=== PATIENT | female | born 1940 | race Caucasian/White ===

== ENCOUNTER 2019-12-28 08:25 | Outpatient (CLI) | payer MEDICARE, MEDICAID ==
[~2019-12-28 08:25] MED LIST: ASPI-10 PO; ASPI-1107 PO; ESOM40CA PO; LANTUS SQ; LINA5TAB4 PO; LIRA0.6P2 SUBCUT; METO25TA6 PO; ROSU10TA2 PO; TICA90TA2 PO; TRIA1CAP2 PO
[2019-12-28 08:59] LABS: BASOPHILS # (AUTO) 0.1 X10'3 (0-0.2); BASOPHILS % (AUTO) 1.1 % (0-1); EOSINOPHILS # (AUTO) 0.2 X10'3 (0-0.9); EOSINOPHILS % (AUTO) 2.4 % (0-6); HEMATOCRIT 23.7 % (35.0-45.0); LYMPHOCYTES # (AUTO) 1.4 X10'3 (1.1-4.8); LYMPHOCYTES % (AUTO) 17.6 % (21-51); MEAN CORPUSCULAR HEMOGLOBIN 20.3 PG (27.0-31.0); MEAN CORPUSCULAR HGB CONC 29.6 g/dL (33.0-36.5); MEAN CORPUSCULAR VOLUME 68.7 FL (78-98); MEAN PLATELET VOLUME 9.2 FL (7.4-10.4); MONOCYTES # (AUTO) 0.7 X10'3 (0-0.9); MONOCYTES % (AUTO) 8.3 % (2-12); NEUTROPHILS # (AUTO) 5.6 X10'3 (1.8-7.7); NEUTROPHILS % (AUTO) 70.6 % (42-75); PLATELET COUNT 277 X10'3 (140-440); RED BLOOD COUNT 3.45 X10'6 (4.20-5.60); RED CELL DISTRIBUTION WIDTH 17.3 % (11.5-14.5)
[2019-12-28 09:06] LABS: ALBUMIN 3.1 G/DL (3.4-5.0); ANION GAP 5 (8-16); BLOOD UREA NITROGEN 24 MG/DL (7-18); BUN/CREATININE RATIO 17.9 (6.6-38.0); CALCIUM 8.5 MG/DL (8.5-10.1); CHLORIDE 104 MMOL/L (99-107); CREATININE 1.34 MG/DL (0.40-0.90); GLUCOSE 122 MG/DL (70-104); POTASSIUM 3.8 MMOL/L (3.5-5.1); SODIUM 138 MMOL/L (135-145); TOTAL CARBON DIOXIDE 29.1 MMOL/L (24-32); eGFR 38 ML/MIN
[2019-12-28 09:09] LABS: PARTIAL THROMBOPLASTIN TIME 25 SECONDS (22-32)
[2019-12-28 09:54] LABS: ANISOCYTOSIS 1+; MICROCYTOSIS 2+; PLATELET ESTIMATE NORMAL
[2019-12-28 09:55] LABS: ELLIPTOCYTES FEW; HYPOCHROMASIA 2+
== END 2019-12-28 23:59 | disposition home or self-care (01) ==
LOC: SSTAY O 08:25 → EDSTATUS 01-03 06:30
PROVIDERS: ATTEND Internal Medicine Interventional Cardiology
DX: R94.31 Abnormal electrocardiogram [ECG] [EKG] (principal); Z53.21 Procedure and treatment not carried out due to patient leaving prior to being seen by health care provider; I25.118 Atherosclerotic heart disease of native coronary artery with other forms of angina pectoris; I10 Essential (primary) hypertension; J44.9 Chronic obstructive pulmonary disease, unspecified; E11.9 Type 2 diabetes mellitus without complications
CPT/HCPCS: 80048; 85025; 85610; 85730

== ENCOUNTER 2020-02-28 05:39 | Day surgery (SDC) | payer MEDICARE, OTHER ==
[2020-02-23 10:18] LABS: BASOPHILS # (AUTO) 0.1 X10'3 (0-0.2); BASOPHILS % (AUTO) 0.9 % (0-1); EOSINOPHILS # (AUTO) 0.2 X10'3 (0-0.9); EOSINOPHILS % (AUTO) 1.8 % (0-6); HEMATOCRIT 36.7 % (35.0-45.0); HEMOGLOBIN 11.9 g/dl (12.0-16.0); LYMPHOCYTES # (AUTO) 1.4 X10'3 (1.1-4.8); LYMPHOCYTES % (AUTO) 15.8 % (21-51); MEAN CORPUSCULAR HEMOGLOBIN 25.5 PG (27.0-31.0); MEAN CORPUSCULAR HGB CONC 32.4 g/dL (33.0-36.5); MEAN CORPUSCULAR VOLUME 78.5 FL (78-98); MEAN PLATELET VOLUME 8.8 FL (7.4-10.4); MONOCYTES # (AUTO) 0.5 X10'3 (0-0.9); MONOCYTES % (AUTO) 6.4 % (2-12); NEUTROPHILS # (AUTO) 6.4 X10'3 (1.8-7.7); NEUTROPHILS % (AUTO) 75.1 % (42-75); PLATELET COUNT 195 X10'3 (140-440); RED BLOOD COUNT 4.67 X10'6 (4.20-5.60); RED CELL DISTRIBUTION WIDTH 22.4 % (11.5-14.5); WHITE BLOOD COUNT 8.5 X10'3 (4.5-11.0)
[2020-02-23 10:32] LABS: PARTIAL THROMBOPLASTIN TIME 27 SECONDS (22-32)
[2020-02-23 10:37] LABS: ANISOCYTOSIS 2+; ELLIPTOCYTES FEW; MICROCYTOSIS 1+; PLATELET ESTIMATE NORMAL
[2020-02-23 10:39] LABS: ALANINE AMINOTRANSFERASE 23 U/L (12-78); ALBUMIN 3.2 G/DL (3.4-5.0); ALBUMIN/GLOBULIN RATIO 0.6 (1.1-1.5); ALKALINE PHOSPHATASE 115 IU/L (46-116); ANION GAP 5 (8-16); ASPARTATE AMINO TRANSFERASE 17 U/L (10-37); BILIRUBIN,TOTAL 0.2 MG/DL (0.1-1.0); BLOOD UREA NITROGEN 20 MG/DL (7-18); BUN/CREATININE RATIO 18.7 (6.6-38.0); CALCIUM 9.1 MG/DL (8.5-10.1); CHLORIDE 102 MMOL/L (99-107); CREATININE 1.07 MG/DL (0.40-0.90); GLUCOSE 131 MG/DL (70-104); POTASSIUM 3.5 MMOL/L (3.5-5.1); SODIUM 138 MMOL/L (135-145); TOTAL CARBON DIOXIDE 31.5 MMOL/L (24-32); TOTAL PROTEIN 8.4 G/DL (6.4-8.2); eGFR 49 ML/MIN
[2020-02-28] VITALS (12 sets, daily range): BP systolic 104–139; BP diastolic 37–80
[~2020-02-28] VITALS: Ht 157.5 cm; Wt 72.4 kg
[2020-02-28] MEDS ORDERED: normal saline 1,000 ML IV SCH (05:55)
[2020-02-28] MEDS ORDERED: diphenhydrAMINE 25mg capsule PO PRN (05:55)
[2020-02-28] MEDS ORDERED: LORazepam 0.5 MG tablet PO PRN (05:55)
[2020-02-28] MEDS ORDERED: INSU100I31 (06:05)
[2020-02-28] MEDS ORDERED: ASPI-1053 PO (06:05)
[2020-02-28] MEDS ORDERED: ESOM40CA49 PO (06:05)
[2020-02-28] MEDS ORDERED: NITR0.4T51 SL (06:05)
[2020-02-28] MEDS ORDERED: HYDR-3964 PO (06:05)
[2020-02-28] MEDS ORDERED: midazolam 2 mg/2 ml injection ONE (06:57)
[2020-02-28] MEDS ORDERED: LIDOcaine 1% (10mg/ml)w/preservative injection 20ml MDV ONE (06:57)
[2020-02-28] MEDS ORDERED: verapamil 2.5 mg/ml inj IV ONE (06:57)
[2020-02-28] MEDS ORDERED: fentaNYL/PF 50MCG/1 ML 2ML syringe ONE (06:57)
[2020-02-28] MEDS ORDERED: heparin 1,000unit/ml 10ml vial 10 ML ONE (06:57)
[2020-02-28] MEDS ORDERED: nitroGLYCERIN-Tridil 50MG/D5W 250 ML IV ONE (06:58)
[2020-02-28] MEDS ORDERED: iohexol 350MG/ML 100ml bottle IV ONE (06:58)
[2020-02-28] MEDS ORDERED: diphenhydrAMINE 25mg capsule PO ONE (07:03)
[2020-02-28] MEDS ORDERED: LORazepam 0.5 MG tablet ONE (07:03)
[2020-02-28] MEDS ORDERED: proCHLORperazine 10 MG/2 ml inj IV PRN (08:10)
[2020-02-28] MEDS ORDERED: HYDROcodone/acetaminophen 5mg/325mg tablet PO PRN (08:10)
[2020-02-28] MEDS ORDERED: ondansetron/PF 4mg/2ml inj IV PRN (08:10)
[2020-02-28] MEDS ORDERED: nitroGLYCERIN 0.4mg SUBLingual tab SL PRN (08:10)
[2020-02-28] MEDS ORDERED: OXAZEpam 15mg capsule PO PRN (08:10)
[2020-02-28] MEDS ORDERED: HYDROcodone/acetaminophen 10/325mg tab PO PRN (08:10)
== END 2020-02-28 11:30 | disposition home or self-care (01) ==
LOC: SSTAY O 05:39
PROVIDERS: ATTEND Student in an Organized Health Care Education/Training Program
DX: R94.39 Abnormal result of other cardiovascular function study (principal); R07.89 Other chest pain; I25.10 Atherosclerotic heart disease of native coronary artery without angina pectoris; I10 Essential (primary) hypertension; E11.9 Type 2 diabetes mellitus without complications; E78.5 Hyperlipidemia, unspecified; Z79.82 Long term (current) use of aspirin; Z79.899 Other long term (current) drug therapy; Z95.5 Presence of coronary angioplasty implant and graft
CPT/HCPCS: 36415; 80053; 85025; 85610; 85730; 93005; 93458; 99152; C1769; C1894; J1644; J2001; J2250; J3010; J7030; Q0163; Q9967; 85008; A4620; A5120; J3490

== ENCOUNTER 2025-05-18 01:57 | Inpatient (IN) | payer MEDICARE, MEDICAID ==
[~2025-05-18] VITALS: Ht 162.6 cm; Wt 54.4 kg
[~2025-05-18 01:57] MED LIST changes: -ASPI-10 PO; +ASPI-1053 PO; -ASPI-1107 PO; -ESOM40CA PO; +ESOM40CA49 PO; +HYDR-3964 PO; +INSU100I31; -LANTUS SQ; -LINA5TAB4 PO; -LIRA0.6P2 SUBCUT; +LOP25T PO; -METO25TA6 PO; +NITR0.4T51 SL; -ROSU10TA2 PO; -TICA90TA2 PO
--- NOTE | 2025-05-18 02:53 | Physician Documentation ---
History of Present Illness ~ Chief Complaint: Hypoglycemia Stated Complaint: HYPOGLYCEMIA Time Seen by MD: 02:52 Mode of Arrival: EMS HPI Patient presents to the emergency room for evaluation of hypoglycemia. Patient does have pancreatic cancer with stent placement. Patient has not felt well the past day with decreased p.o. intake. She would not take her insulin today becau se when she checked her sugar it was not high enough to take her insulin. Daughter notes that earlier today patient was sitting by [employer] stove with the heat blanket on and shivering. Denies any dysuria or new abdominal pain. No cough cold congestion. Medication Reconciliation Allergies: Coded Allergies: No Known Allergies (Unverified , 03/17/14) Scheduled Amiodarone HCl (Amiodarone HCl), 1 TAB PO DAILY, (Reported) Aspirin (Alejandra Chewable), 81 MG PO DAILY, (Reported) Hydrochlorothiazide (Hydrochlorothiazide), 1 TAB PO DAILY, (Reported) Insulin Glargine,Hum.rec.anlog* (Lantus*), 15 UNITS SQ HS, (Reported) Metoprolol Succinate (Metoprolol Succinate), 1 TAB PO DAILY, (Reported) Nitroglycerin SL* (Nitrostat SL*), 1 TAB SL UD, (Reported) Pantoprazole Sodium (Pantoprazole Sodium), 1 TAB PO DAILY, (Reported) Ursodiol (Ursodiol), 1 CAP PO DAILY, (Reported) Scheduled PRN Hydrocodone Bit/Acetaminophen (Hydrocodon-Acetaminophen 5-325), 1 TAB PO Q6H PRN for pain, (Reported) Discontinued Medications Esomeprazole Magnesium (Nexium), 1 CAP PO DAILY, (Reported) Discontinued Reason: patient no longer taking Insulin Glargine,Hum.rec.anlog (Basaglar Kwikpen U-100), (Reported) Discontinued Reason: patient no longer taking Metoprolol Tartrate* (Lopressor tablet*), 25 MG PO BID, (Reported) Discontinued Reason: patient no longer taking Triamterene/Hydrochlorothiazid (Dyazide 37.5-25 Capsule), 1 CAP PO DAILY, (Reported) Discontinued Reason: patient no longer taking Review of Systems ROS All review of systems negative except as per HPI Physical Exam Vital Signs: Temperature: 98.1, Source: Oral, Heart Rate: 92, Respiratory Rate: 16, BP: 101/41, Pulse Oximetry: 98, Weight: 54.400 Physical Exam General: Patient is awake, alert, oriented x4 in no acute distress Head: Normocephalic and atraumatic. Eyes: Conjunctival normal. EOMI. PERRL. ENT: Mucous membranes dry. Neck: Supple, trachea is midline. Chest: Clear to auscultation bilaterally without rales, rhonchi, or wheezes. There is no accessory muscle use or retractions. Cardiac: RRR without murmurs, gallops, or rubs. Abd: Soft, nondistended, mild diffuse tenderness to palpation without peritonitis Progress Progress Note The patient presented with hypoglycemia, the patient had a WBC elevation and a procalcitonin of 11 which seemed excessive given the patient's unimpressive UTI. The patient has had a diagnosis of pancreatic head cancer and has has a stent placed in her bile duct interrogation of her bile ducts demonstrated cholecystitis with two masses or stones within the proximal bile ducts. The patient is in need of an ERCP, the patient was given IV antibiotics with improvement of her clinical condition the case has been discussed with the surgeon, the patient has been accepted at [facility] the patient will be transferred to [facility] on Thursday night, the patient will be admitted to the hospitalist service the case has been discussed with the hospitalist. Extensive conversation has a occurred with the family and the hui ent has had an extended stay in the emergency department awaiting attempts to transfer heard a for ERCP Results/Orders Results/Orders Orders - CARLOS LEE MD Culture Blood (05/18/25 03:06) Chest,Single View (05/18/25 03:30) Completed Orders - CARLOS LEE MD Electrocardiogram (05/18/25 03:06) Cbc/Diff (05/18/25 03:06) MG (05/18/25 03:06) Chest,Single View (05/18/25 03:30) Procalcitonin (05/18/25 03:06) Influenza Type A&B Rapid Test (05/18/25 03:06) Hs Troponin I W Calculations (05/18/25 03:06) Lacticsepsis (05/18/25 03:06) CMP (05/18/25 03:06) Normal Saline 1000ml (0.9% Sodium Chlori (05/18/25 03:10) Ceftriaxone/M8w-Vjyshkas 1gm (Rocephin 1 (05/18/25 06:25) Ua W/Microscopic, Cult If Ind (05/18/25 06:50) Cult Urine + [place] [address] (05/18/25 07:38) Dextrose 50%-Water (Dextrose 50%-Water S (05/18/25 18:45) Hydrocodone/Apap 5/325mg Tab ([place] 5/32 (05/18/25 21:05) Vital Signs 05/18/25 05/18/25 05/18/25 05/18/25 07:45 08:00 09:00 09:00 Pulse 75 73 75 75 Resp 14 15 16 16 B/P (MAP) 143/81 (101) 103/42 (62) 106/46 (66) Pulse Ox 99 100 100 100 O2 Flow Rate 0 0 0 05/18/25 05/18/25 05/18/25 05/18/25 09:30 09:35 09:53 10:35 Pulse 78 77 79 Resp 13 18 14 B/P (MAP) 119/56 (77) 117/58 (77) Pulse Ox 99 100 99 O2 Flow Rate 0 05/18/25 05/18/25 05/18/25 05/18/25 13:02 13:03 14:00 14:49 Pulse 77 72 86 Resp 16 16 16 18 B/P (MAP) 123/53 (76) 107/45 (65) 107/45 (65) Pulse Ox 97 97 97 O2 Flow Rate 0 0 0 05/18/25 05/18/25 05/18/25 05/18/25 15:21 15:30 16:30 17:25 Pulse 86 82 91 Resp 16 16 18 14 B/P (MAP) 122/52 (75) 107/44 (65) 107/42 (63) Pulse Ox 96 94 96 O2 Flow Rate 0 0 0 05/18/25 05/18/25 05/18/25 05/19/25 19:31 19:31 22:50 00:01 Temp 98.1 98.1 Pulse 84 84 80 Resp 18 18 15 B/P (MAP) 89/39 (56) 120/46 (70) 125/48 (73) Pulse Ox 90 98 96 O2 Flow Rate 0 0 05/19/25 05/19/25 05/19/25/19/25 02:45 03:30 04:30 05:30 Temp 98.1 Pulse 78 89 81 77 Resp 14 14 13 14 B/P (MAP) 114/54 (74) 110/83 (92) 122/50 (74) 132/49 (76) Pulse Ox 90 98 97 99 O2 Flow Rate 0 05/19/25 05/19/25 05/19/25 05/19/25 06:45 07:50 08:36 09:00 Pulse 85 89 86 Resp 16 16 16 16 B/P (MAP) 128/45 (72) 144/59 (87) 138/54 (82) Pulse Ox 94 94 94 O2 Flow Rate 0 0 0 05/19/25 05/19/25 05/19/25 05/19/25 09:20 10:00 10:58 12:16 Pulse 76 81 74 Resp 16 16 16 17 B/P (MAP) 123/51 (75) 142/60 (87) 141/61 (87) Pulse Ox 95 96 96 O2 Flow Rate 0 0 0 05/19/25 05/19/25 13:17 14:17 Pulse 78 90 Resp 16 16 B/P (MAP) 145/62 (89) 149/61 (90) Pulse Ox 94 95 O2 Flow Rate 0 0 Laboratory Tests Test 05/18/25 02:10 05/18/25 03:07 05/18/25 03:16 05/18/25 05:20 Glucometer 127 H 144 H Influenza Type A Antigen Negative Influenza Type B Antigen Negative White Blood Count 16.4 H Red Blood Count 3.40 L Hemoglobin 9.6 L Hematocrit 28.9 L Mean Corpuscular Volume 85.0 Mean Corpuscular Hemoglobin 28.2 Mean Corpuscular Hemoglobin Concent 33.2 Red Cell Distribution Width 14.8 H Platelet Count 163 Mean Platelet Volume 9.9 Neutrophils (%) (Auto) 91.8 H Lymphocytes (%) (Auto) 2.4 L Monocytes (%) (Auto) 5.4 Eosinophils (%) (Auto) 0 Basophils (%) (Auto) 0.4 Neutrophils # (Auto) 15.0 H Lymphocytes # (Auto) 0.4 L Monocytes # (Auto) 0.9 Eosinophils # (Auto) 0.0 Basophils # (Auto) 0.1 CBC Comment Sodium Level 138 Potassium Level 2.1 *L Chloride Level 102 Carbon Dioxide Level 29.8 Anion Gap 6 L Blood Urea Nitrogen 12 Creatinine 1.01 H Estimated GFR/1.73 m2 52 BUN/Creatinine Ratio 11.9 Glucose Level 123 H Lactic Acid Level 1.4 Calcium Level 6.9 L Magnesium Level 1.5 Total Bilirubin 1.7 H Aspartate Amino Transf (AST/SGOT) 79 H Alanine Aminotransferase (ALT/SGPT) 34 Alkaline Phosphatase 394 H Troponin I High Sensitivity 26 Total Protein 5.9 L Albumin 1.4 L Globulin 4.5 H Albumin/Globulin Ratio 0.3 L Procalcitonin 11.31 H Chemistry Comments Test 05/18/25 06:50 05/18/25 07:48 05/18/25 07:49 05/18/25 15:50 Urine Specimen Description Urinal Urine Color Dark yellow Urine Clarity Clear Urine pH 6.0 Urine Specific [place] 1.025 Urine Protein Trace Urine Glucose (UA) 100 H Urine Ketones Negative Urine Occult Blood Negative Urine Nitrite Negative Urine Bilirubin Moderate Urine Urobilinogen 4.0 H Urine Leukocyte Esterase Negative Urine RBC 0-2 Urine WBC 5-10 H Urine Squamous Epithelial Cells Moderate Urine Uric Acid Crystals 1+ Urine Bacteria 1+ Urine Mucus None seen Urine Culture Indicated Indicated Volume Urine Centrifuged 10 ml Urine Comment Magnesium Level 1.6 Glucometer 134 H Potassium Level 3.9 Test 05/18/25 17:42 05/18/25 18:36 05/18/25 19:19 05/19/25 08:11 Glucometer 65 L 64 L 142 H White Blood Count 10.5 Red Blood Count 3.82 L Hemoglobin 10.6 L Hematocrit 32.4 L Mean Corpuscular Volume 84.8 Mean Corpuscular Hemoglobin 27.8 Mean Corpuscular Hemoglobin Concent 32.8 L Red Cell Distribution Width 15.2 H Platelet Count 180 Mean Platelet Volume 9.8 Neutrophils (%) (Auto) 83.6 H Lymphocytes (%) (Auto) 7.6 L Monocytes (%) (Auto) 5.6 Eosinophils (%) (Auto) 2.7 Basophils (%) (Auto) 0.5 Neutrophils # (Auto) 8.7 H Lymphocytes # (Auto) 0.8 L Monocytes # (Auto) 0.6 Eosinophils # (Auto) 0.3 Basophils # (Auto) 0.0 CBC Comment Sodium Level 140 Potassium Level 3.1 L Chloride Level 106 Carbon Dioxide Level 29.5 Anion Gap 5 L Blood Urea Nitrogen 11 Creatinine 0.98 H Estimated GFR/1.73 m2 54 BUN/Creatinine Ratio 11.2 Glucose Level 52 L Calcium Level 7.7 L Total Bilirubin 2.0 H Aspartate Amino Transf (AST/SGOT) 80 H Alanine Aminotransferase (ALT/SGPT) 41 Alkaline Phosphatase 385 H Total Protein 5.9 L Albumin 1.3 L Globulin 4.6 H Albumin/Globulin Ratio 0.3 L Chemistry Comments Test 05/19/25 08:18 05/19/25 09:09 05/19/25 10:51 05/19/25 11:37 Glucometer 41 *L 40 *L 116 H Potassium Level 3.9 Test 05/19/25 13:42 Glucometer 111 H Microbiology Date/Time Source Procedure Growth Status 05/18/25 07:48 Blood Hand Right Blood Culture - Preliminary NO GROWTH AFTER 4 DAYS Resulted 05/18/25 07:38 Urine Urinal (Er Only) Urine Culture - Final MIXED RANGEL ISOLATED.... Complete EKG/XRAY/CT/US/VASC/MRI Ultrasound : Impression Patient: KALI ROGERS Medical Record: [id number] [facility] : 1940, Age: 84 Sex: Female Location: ER Patient Status: REG ER Service Date/Time: 05/18/25843 Ordering Physician: GRANT ANDERSON MD Exam: ULTRASOUND OF ABDOMEN EXAM: US ULTRASOUND OF ABDOMEN HISTORY: abnormal ct COMPARISON: CT CT ABDOMEN PELVIS on DOS: 05/18/25 TECHNIQUE: Real-time grayscale and color flow images of the abdomen were obtained. FINDINGS: LIVER: Liver measures 13.9 cm craniocaudal. Liver parenchyma is homogeneous in echotexture. No focal lesion is identified. No intrahepatic ductal dilatation. Normal directional flow is seen in the portal vein. GALLBLADDER: There is biliary sludge. The gallbladder wall is thickened at 5 mm. There is no sonographic saunders sign. No pericholecystic fluid. Probable small gallbladder polyp. COMMON BILE DUCT: 6 mm in caliber. KIDNEYS: The right kidney measures 10.6 cm in length. No hydronephrosis. No suspicious renal lesions. No sonographic evidence of calculi. IMPRESSION: 1. Biliary sludge with sonographic findings raising the possibility of acute cholecystitis in the appropriate clinical setting. 2. The patient's known common bile duct abnormality is better assessed on recent CT. Electronically Signed by:MURRAY TATE MD Date & Time: 05/18/25937 Dictated by: MURRAY TATE MD Dictation date and time: 05/18/25937 Primary Care Provider: NO PRIMARY CARE PROVIDER cc: GRANT ANDERSON MD ~ Medical Decision Making Additional information obtaine: old records Findings see progress Differential Dx:Considerations: Include: Encephalopathy, Sepsis Departure Impression: Primary Impression: Hypoglycemia Additional Impressions: Hypokalemia Urinary tract infection Qualified Codes: N30.00 - Acute cystitis without hematuria Referrals: NO PRIMARY CARE PROVIDER (PCP) Signature Scribe Signature: no Attestation: The note accurately reflects work and decisions made by me.Carlos Lee MD 05/22/25 23:40 The note accurately reflects work and decisions made by me.Grant Anderson MD 05/20/25 19:27 CARLOS LEE MD May 18, 2025 02:53 GRANT ANDERSON MD May 18, 2025 08:37
--- NOTE | 2025-05-18 03:13 | ELECTROCARDIOGRAPH REPORT ---
[facility] Test Date: 2025-05-18 Test Time: 03:09:38 Pat Name: KALI ROGERS Department: [facility] Patient ID: [facility]-[id number] Room: ORTHO 4012 Gender: F Utility Hand: : 1940 Requested By: AFSHAN GUEVARA Order Number: [id number] Reading MD: Dr. Berry Alas Measurements Intervals Kamas Rate: 90 P: 0 OR: 56 QRS: 48 QRSD: 85 T: 60 QT: 404 QTc: 495 Interpretive Statements Sinus rhythm Short OR interval Borderline repolarization abnormality Borderline prolonged QT interval Electronically Signed On 05-25-2025 0:23:[address] Berry Alas Please click the below link to view image of tracing.
[2025-05-18] MEDS: normal saline 1000ml 1,000 ML IV ONE (03:17)
[2025-05-18] MEDS ORDERED: AMIO200T73 PO (03:25)
[2025-05-18] MEDS ORDERED: PANT40TA54 PO (03:25)
[2025-05-18] MEDS ORDERED: URSO300C2 PO (03:25)
[2025-05-18] MEDS ORDERED: HYDR12.55 PO (03:25)
[2025-05-18] MEDS ORDERED: LANTUS SQ (03:25)
[2025-05-18] MEDS ORDERED: METO-395 PO (03:25)
[2025-05-18 03:47] LABS: INFLUENZA TYPE A ANTIGEN RAPID NEGATIVE (Negative); INFLUENZA TYPE B ANTIGEN RAPID NEGATIVE (Negative)
--- NOTE | 2025-05-18 04:02 | RADIOLOGY REPORT ---
CHEST RADIOGRAPH INDICATION: SEPSIS TECHNIQUE: Single frontal view of the chest was obtained COMPARISON: None FINDINGS: Lines and Tubes: None Lungs: Stable chronic appearing bilateral interstitial pulmonary markings. No evidence of focal consolidation. Pleura: No effusion. No pneumothorax. Cardiomediastinal contours: Unremarkable Bones: Unremarkable IMPRESSION: 1. No evidence of acute disease.
[2025-05-18 05:35] LABS: MEAN PLATELET VOLUME 9.9 FL (7.4-10.4); RED CELL DISTRIBUTION WIDTH 14.8 % (11.5-14.5)
[2025-05-18] MEDS: CefTRIAXone/D5W-Rocephin 1gm 50 ML IV ONE (06:42)
[2025-05-18 06:55] LABS: CREATININE 1.01 MG/DL (0.40-0.90); TOTAL CARBON DIOXIDE 29.8 MMOL/L (24-32); eCRCL 34 ML/MIN; eGFR 52 ML/MIN
[2025-05-18] MEDS ORDERED: potassium Cl 20 mEq SR tablet PO PRN (07:15)
[2025-05-18] MEDS ORDERED: magnesium sulf-water 4G/100mL 100 ML IV PRN (07:15)
[2025-05-18] MEDS ORDERED: magnesium Cl slow-release 64mg tablet PO PRN (07:15)
[2025-05-18] MEDS ORDERED: magnesium sulf-water 2g/50mL 50 ML IV PRN (07:15)
[2025-05-18 07:31] LABS: LEUKOCYTE ESTERASE ,URINE NEGATIVE (Neg); NITRITES, URINE NEGATIVE (Neg); OCCULT BLOOD,URINE NEGATIVE (Neg)
[2025-05-18 07:33] LABS: UA COLLECTION TYPE URINAL
[2025-05-18 07:38] LABS: MUCUS STRANDS NONE SEEN /LPF (Neg); SQUAMOUS EPITHELIAL CELL,UR MODERATE /LPF (FEW); URIC ACID CRYSTALS 1+ /HPF (NEGATIVE)
[2025-05-18] MEDS: potassium Cl 20 mEq SR tablet PO PRN (07:57)
[2025-05-18] MEDS: normal saline 1000ML IV soln IVB ONE (07:58)
[2025-05-18] MEDS: potassium Cl 40MEQ/1/2NS 520ml 520 ML IV PRN (08:01)
[2025-05-18] MEDS: K and/or MAG REPLACEMENT MC SCH (08:02)
[2025-05-18] MEDS ORDERED: POTASSIUM CHLORIDE 20 MEQ/15 ML oral solution PO PRN (08:54)
--- NOTE | 2025-05-18 09:06 | RADIOLOGY REPORT ---
CLINICAL INFORMATION: Fever, leukocytosis. History of bile duct stent. TECHNIQUE: Axial CT images of the abdomen and pelvis were obtained without IV contrast. Coronal and sagittal reformatted images were obtained, reviewed, and stored. Evaluation of the parenchymal organs is limited without IV contrast. Evaluation of the bowel and mesentery is limited without oral contrast. All CT scans at this medical facility are performed using dose modulation techniques as appropriate to a performed exam including the following: Automated exposure control was utilized; adjustment of the MA and/or KV according to patient size; and use of iterative reconstruction technique. CTDIvol = 9.86 mGy DLP = 456.21 mGy-cm COMPARISON: None FINDINGS: Lung bases: Fibrotic changes in the lung bases. Liver: Grossly unremarkable. Biliary: Common bile duct stent in place. There appear to be calcific densities in the central intrahepatic ducts proximal to the level of the common bile duct stent with intrahepatic biliary ductal dilatation. Gallbladder is mildly distended. There is apparent gallbladder wall thickening. Possible minimal layering density in the gallbladder. Spleen: Unremarkable. Pancreas: Moderate to marked atrophy. Adrenal glands: Unremarkable. No mass. Kidneys: No hydronephrosis. No renal or ureteral calculi. Aorta/Vascular: Dense arterial calcification. No abdominal aortic aneurysm. Incidental note is made of an apparent common origin of the celiac trunk and SMA, consistent with a celiacamesenteric trunk. Lymph nodes: No mass or lymphadenopathy. Bowel/mesentery: Nonspecific nondilated fluid-filled small bowel loops. No small bowel obstruction. Appendix is not visualized. No free air. There is mild mesenteric edema without significant free fluid visualized. Pelvic organs: Grossly unremarkable. Bladder: Unremarkable. No mass. Abdominal wall: No mass or hernia. Bones: No acute fracture or suspicious intraosseous lesion. IMPRESSION: 1. Common bile duct stent in place. There are calcific densities in the central intrahepatic ducts, possibly gallstones, proximal to the common bile duct stent with associated intrahepatic biliary ductal dilatation. Correlate with clinical findings. MRCP may be helpful to further characterize if clinically indicated. 2. Gallbladder wall appears thickened. Mildly distended gallbladder. Possible minimal layering density in the gallbladder. If clinically indicated, ultrasound may be helpful to further characterize. 3. Nonspecific nondilated fluid-filled small bowel loops. Findings may be seen with ileus or enteritis in the appropriate clinical setting. No small bowel obstruction. 4. Additional findings as described above.
--- NOTE | 2025-05-18 09:40 | RADIOLOGY REPORT ---
EXAM: US ULTRASOUND OF ABDOMEN HISTORY: abnormal ct COMPARISON: CT CT ABDOMEN PELVIS on DOS: 05/18/25 TECHNIQUE: Real-time grayscale and color flow images of the abdomen were obtained. FINDINGS: LIVER: Liver measures 13.9 cm craniocaudal. Liver parenchyma is homogeneous in echotexture. No focal lesion is identified. No intrahepatic ductal dilatation. Normal directional flow is seen in the portal vein. GALLBLADDER: There is biliary sludge. The gallbladder wall is thickened at 5 mm. There is no sonographic saunders sign. No pericholecystic fluid. Probable small gallbladder polyp. COMMON BILE DUCT: 6 mm in caliber. KIDNEYS: The right kidney measures 10.6 cm in length. No hydronephrosis. No suspicious renal lesions. No sonographic evidence of calculi. IMPRESSION: 1. Biliary sludge with sonographic findings raising the possibility of acute cholecystitis in the appropriate clinical setting. 2. The patient's known common bile duct abnormality is better assessed on recent CT.
[2025-05-18] MEDS: piperacillin/tazo 3.375gm/50ml 50 ML IV ONE (10:05)
--- NOTE | 2025-05-18 13:48 | RADIOLOGY REPORT ---
CLINICAL HISTORY: Abnormal CT. TECHNIQUE: MRI and MRCP of the abdomen were performed without gadolinium. 3D reconstructed images were created under concurrent radiologist supervision and archived on the PACS system. COMPARISON: US ULTRASOUND OF ABDOMEN on DOS: 05/18/25, CT CT ABDOMEN PELVIS on DOS: 05/18/25. FINDINGS: Mildly distended gallbladder filled with a large amount of sludge. No evidence of gallbladder cholelithiasis. Abnormal gallbladder wall thickening/mild pericholecystic fat stranding, which is concerning for acute cholecystitis. Common bile duct (CBD) stent in place. Extrahepatic biliary ductal/CBD dilation measuring up to 20 mm. Multiple ovoid densities within the extrahepatic bile ducts/CBD proximal to the CBD stent measuring up to 15 mm, which is favored to represent choledocholithiasis. No intrabiliary ductal dilation. Unremarkable liver, spleen, and adrenal glands. Diffusely atrophic pancreas without evidence of pancreatitis or mass. No main pancreatic duct dilation. Mild bilateral perinephric fat stranding, which is nonspecific. No hydronephrosis or evidence of a suspicious renal mass. Partially imaged portions of the small large bowel appear unremarkable. IMPRESSION: 1. Mildly distended gallbladder filled with a large amount of sludge. No evidence of gallbladder cholelithiasis. Abnormal gallbladder wall thickening/mild pericholecystic fat stranding, which is concerning for acute cholecystitis. 2. CBD stent in place. Extrahepatic biliary ductal/CBD dilation measuring up to 20 mm. Multiple ovoid densities within the extrahepatic bile ducts/CBD proximal to the CBD stent measuring up to 15 mm, which is favored to represent choledocholithiasis. Consider follow-up ERCP for further evaluation.
[2025-05-18] MEDS: HYDROcodone/acetaminophen 5mg/325mg tablet PO ONE ×2 (15:21→21:14)
[2025-05-18] MEDS: piperacillin/tazo 3.375gm/50ml 50 ML IV SCH (17:24)
[2025-05-18] MEDS: dextrose 50%-water 50ml dispensing syringe IV ONE (18:52)
[2025-05-19] MEDS: pantoprazole 40mg Tablet.DR PO SCH (08:20)
[2025-05-19 08:27] LABS: MEAN PLATELET VOLUME 9.8 FL (7.4-10.4); RED CELL DISTRIBUTION WIDTH 15.2 % (11.5-14.5)
[2025-05-19 08:41] LABS: CREATININE 0.98 MG/DL (0.40-0.90); TOTAL CARBON DIOXIDE 29.5 MMOL/L (24-32); eCRCL 35 ML/MIN; eGFR 54 ML/MIN
[2025-05-19] MEDS: POTASSIUM CHLORIDE 20 MEQ/15 ML oral solution PO PRN (08:47)
[2025-05-19] MEDS: HYDROcodone/acetaminophen 5mg/325mg tablet PO PRN ×2 (09:20→17:38)
[2025-05-19] MEDS: normal saline 1000ML IV soln IVB ONE (15:41)
--- NOTE | 2025-05-19 16:04 | HISTORY AND PHYSICAL ---
History & Physical Providers to CC Chief complaint, Weakness, hypoglycemia ~ History of Present Illness Reason for Admit\Complaint: As above History of Present Illness This is a 84 years old white female, with history of multiple medical problems including diabetes mellitus type 2 poor control, tachyarrhythmia on amiodarone, coronary artery disease nonobstructive, anemia hemoglobin 9.6, chronic kidney disease, CHF, hypertension, COPD, history of pancreatic cancer treated with biliary stent, hypoalbuminemia, malnutrition, BMI 20, chronic pain syndrome on home opioids, presented today to emergency department chief complaint generalized weakness associated with hypoglycemia; in addition Patient presents to the emergency room for evaluation of hypoglycemia. Patient does have pancreatic cancer with stent placement. Patient has not felt well the past day with decreased p.o. intake. She would not take her insulin today because when she checked her sugar it was not high enough to take her insulin. Daughter notes that earlier today patient was sitting by [employer] stove with the heat blanket on and shivering. Denies any dysuria or new abdominal pain. No cough cold congestion. In emergency department patient was extensively evaluated and treated including IV antibiotics, consulted by general surgeon, diagnosed with pancreatic cancer hypoglycemia, acute cholecystitis, UTI, bacteremia, and decision was made to admit patient for further evaluation and treatment, patient is going to be transferred to higher level of care per surgeon recommendation. Allergies: Coded Allergies: No Known Allergies (Unverified , 03/17/14) Active prescriptions I reviewed reconciled Home Medications Home Medications Active Reported Amiodarone HCl 200 Mg Tablet 1 Tab PO DAILY Pantoprazole Sodium 40 Mg Tablet. 1 Tab PO DAILY Lantus* (Insulin Glargine) 100 Unit/1 Ml Vial 15 Units SQ HS Ursodiol 300 Mg Capsule 1 Cap PO DAILY 30 Days Metoprolol Succinate 25 Mg Tab.sr.24h 1 Tab PO DAILY Hydrochlorothiazide 12.5 Mg Tablet 1 Tab PO DAILY Nitrostat SL* (Nitroglycerin) 0.4 Mg Tablet 1 Tab SL UD 1st sign of attack; may repeat every 5 mins; if pain persists after 3 in 15 min, medical attention is recommended Hydrocodon-Acetaminophen 5-325 (Hydrocodone Bit/Acetaminophen) 1 Each Tablet 1 Tab PO Q6H PRN Alejandra Chewable (Aspirin) 81 Mg Tab.chew 81 Mg PO DAILY Past Medical History Past Medical History As in HPI Past Surgical History Surgical History Comment As in HPI Past Social History Social History Comment Deny illicit drug abuse tobacco alcohol use, live with the family good social support Health Maintenance Health Maintenance Noncontributory ROS ROS I review of systems Constitutional : no fever , no chills, positive for generalized weakness. No diaphoresis. Allergic/Immunologic, no lymphadenopathy, no hives, no skin eruptions. Eyes, no recent visual changes, no eye pain, no photophobia. Ears, nose, mouth, throat, no sore throat, no nosebleed, no ear pain. Cardiovascular, no palpitations, skipped beats, chest pain, no peripheral edema, Respiratory, no dyspnea, orthopnea, cough, hemoptysis, chest wall pain. Gastrointestinal, no abdominal pain, nausea, vomiting, constipation or diarrhea. : no dysuria, hematuria, pelvic pain, urethral d/c. Endocrine, no polyuria, polydipsia, recent unintentional weight gain or loss. Hematologic/Lymphatic, no petechiae, no enlarged lymph nodes, no bone pain. Integumentary, no rash, no skin lesions, Musculoskeletal, no muscle aches, or pain, no muscle cramps, no recent change in gait Neurological, no dizziness, no headache, no syncope, no paresthesia. Psychiatric, no delusions, visual hallucinations, or hearing hallucinations. ROS - in rest is as in HPI. Exam Vitals: Vital Signs Date Time Temp Pulse Resp B/P (MAP) Pulse Ox O2 Delivery O2 Flow Rate FiO2 05/19/25 14:17 90 16 149/61 (90) 95 0 05/19/25 02:45 98.1 Vital signs, stable ,afebrile. Pulse Oximetry reflects adequate oxygenation. BMI is 40, weight 54 kg General: well developed, poorly nourished. Awake , alert, and oriented x4, resting comfortably in the bed, in no acute distress . Skin: Warm, dry, no pallor, no rash or petechiae. HEENT: Atraumatic, normocephalic, EOMI, anicteric sclera B; pink conjunctiva; PERRLA, normal oropharynx, moist oral and nasal mucosa. Tympanic membrane , nose , throat clear. Neck: Trachea midline. Supple, full range of motion, no JVD, bruit , hepatojugular reflex , lymphadenopathy or masses, or other lesions Cardiac: Regular rhythm, regular rate no murmurs, rubs, or gallops. Normal S1 and S2, no S3 noticed. PMI is normal. Respiratory: Equal breath sounds bilaterally, no tachypnea; lungs clear to auscultation bilaterally, no wheezing ,rub or rales, or crackles. Chest wall is symmetric and without deformity. No signs of trauma. Chest wall is nontender. No signs of respiratory distress. Resonance is normal upon percussion bilaterally. Gastrointestinal: Abdomen symmetric, non-distended, soft, non-tender, normal bowel sounds x4 quadrant, normoactive, no hepatosplenomegaly , no masses , no bruit, no flank pain bilaterally. No voluntary guarding, rebound, or rigidity. No tenderness to percussion. No pulsatile masses. Equal femoral pulses. No Ingram's sign or McBurney point tenderness. Back; no CVA tenderness bilaterally, no deformities. Neck and back are without deformity as well. No tenderness noted on palpation of the spinous processes. Spinous processes are midline. Cervical, thoracic, and lumbar paraspinal muscles are not tender and are without spasm. : normal external genitalia, without lesions, swelling, masses or tenderness. Musculoskeletal: Extremities, normal range of motion, non-tender, muscle strength 5/5 x 4. Negative Homans signs bilaterally on lower extremity. Distal pulses full symmetrical, no clubbing, cyanosis , edema. Neurological: Speech is clear, alert, and oriented x 4. No motor or sensory deficit, deep tendon reflexes normal, cerebellar intact. Cranial nerves II-XII intact. Psych: Alert and or appropriate, normal affect. Vascular: Good distal pulses, which are equal x4; capillary refill less than 2 seconds. Lymphatic, no lymphadenopathy. Diagnostic Data Last Recorded Lab Results: 05/19/25 0811 05/19/25 1137 Advance Care Planning Advanced Care plannin - 30 Minutes Additional Plan Assessment Generalized weakness Diabetes mellitus type 2 uncontrolled Hypoglycemia Bacteremia Sepsis Hypovolemia UTI complicated Acute kidney injury secondary to vasomotor nephropathy Hypoalbuminemia Hypokalemia Malnutrition severe Chronic pain syndrome on home opioids Pancreatic cancer status post biliary stent placement Acute cholecystitis Acute cholangitis Anemia hemoglobin 9.6 Additional comorbidities, coronary artery disease, COPD, hypertension, CHF, chronic kidney disease 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, Plan IV antibiotics, fluids keep patient well hydrated euvolemic Correct electrolytes PT evaluation and treatment Nutrition consult Additional lab work pending General surgeon is on the case, recommended to transfer patient higher level of care Additional lab work pending I reconciled home medications DVT gastropathy prophylaxis addressed Sepsis Screening Reassessment Date: May 19, 2025 Date of Service: May 19, 2025 Billing Provider: NEO GALICIA MD Common Visit Codes: [id number] INP/OBS CARE (HIGH) Secondary Visit Codes: [id number] CARE PLAN 30 MINUTES NEO GALICIA MD May 19, 2025 16:04
[2025-05-19] MEDS ORDERED: magnesium sulf-water 2g/50mL 50 ML IV PRN (16:40)
[2025-05-19] MEDS ORDERED: mag hydrox/Alum hydrox/simeth 30ml oral suspension PO PRN (16:40)
[2025-05-19] MEDS ORDERED: magnesium hydroxide 30ml (MOM) UD suspension PO PRN (16:40)
[2025-05-19] MEDS ORDERED: potassium Cl 20 mEq SR tablet PO PRN ×2 (16:40)
[2025-05-19] MEDS ORDERED: magnesium Cl slow-release 64mg tablet PO PRN (16:40)
[2025-05-19] MEDS ORDERED: bisacodyl 10mg suppository rectal RC PRN (16:40)
[2025-05-19] MEDS ORDERED: ondansetron/PF 4mg/2ml inj IV PRN (16:40)
[2025-05-19] MEDS ORDERED: ondansetron 4mg rapidly disintigrating tab PO PRN (16:40)
[2025-05-19] MEDS ORDERED: acetaminophen 650mg rectal suppository RC PRN (16:40)
[2025-05-19] MEDS ORDERED: magnesium sulf-water 4G/100mL 100 ML IV PRN (16:40)
[2025-05-19] MEDS: INSULIN LISPRO 100 UNIT/ML INSULN.PEN MULTI-DOSE SQ SCH (17:00)
[2025-05-19] MEDS ORDERED: morphine 4 MG/ML inj SYRINge IV PRN ×2 (17:31)
[2025-05-19 17:33] LABS: APTT 28 SECONDS (22-32); INR 1.3 INR
[2025-05-19 17:42] LABS: PHOSPHORUS 3.0 MG/DL (2.3-4.5)
[2025-05-19] MEDS: potassium Cl 20mEq in NS 1,000 ML IV SCH (18:51)
[2025-05-19] MEDS: docusate sod 100mg capsule PO SCH (18:54)
[2025-05-19] MEDS: K and/or MAG REPLACEMENT MC SCH (19:59)
[2025-05-19] MEDS: insulin glargine (Lantus) pen - multi-dose SQ SCH (21:00)
[2025-05-20] MEDS ORDERED: piperacillin/tazo 3.375gm/50ml 50 ML IV SCH
[2025-05-20 02:59] LABS: MEAN PLATELET VOLUME 9.9 FL (7.4-10.4); RED CELL DISTRIBUTION WIDTH 15.0 % (11.5-14.5)
[2025-05-20 03:49] LABS: CREATININE 0.89 MG/DL (0.40-0.90); TOTAL CARBON DIOXIDE 25.8 MMOL/L (24-32); eCRCL 39 ML/MIN; eGFR 60 ML/MIN
[2025-05-20 07:05] VITALS: BP 144/60; PULSE 84; RESP 16; TEMP 97.7; O2SAT 97
[2025-05-20 08:50] VITALS: RESP 16; O2SAT 95
[2025-05-20 10:00] VITALS: BP 157/74; PULSE 73; RESP 16; TEMP 97.8; O2SAT 93
[2025-05-20] MEDS: HYDROcodone/acetaminophen 10/325mg tab PO PRN (10:34)
[2025-05-20 11:38] VITALS: BP 136/59
--- NOTE | 2025-05-20 16:00 | PROGRESS NOTE ---
Daily Progress Note Providers to CC No new complaint, resting comfortably in the bed ~ Central Line/PICC still needed: No Joya-Non Protocol Joya Indications Met/Not Met: F/C Indications Not Met Antibiotic Timeout Antibiotic Ordered?: Yes MRSA Education MRSA Education Provided to pt: Yes Subjective As above Objective Vital Signs Date Time Temp Pulse Resp B/P (MAP) Pulse Ox O2 Delivery O2 Flow Rate FiO2 05/20/25 11:38 136/59 (84) 05/20/25 10:00 97.8 73 16 93 Room Air 05/20/25 08:50 0.0 Vital signs, stable ,afebrile. Pulse Oximetry reflects adequate oxygenation. General: well developed, well nourished. Awake , alert, and oriented x4, resting comfortably in the bed, in no acute distress . Skin: Warm, dry, no pallor, no rash or petechiae. HEENT: Atraumatic, normocephalic, EOMI, anicteric sclera B; pink conjunctiva; PERRLA, normal oropharynx, moist oral and nasal mucosa. Tympanic membrane , nose , throat clear. Neck: Trachea midline. Supple, full range of motion, no JVD, bruit , hepatojugular reflex , lymphadenopathy or masses, or other lesions Cardiac: Regular rhythm, regular rate no murmurs, rubs, or gallops. Normal S1 and S2, no S3 noticed. PMI is normal. Respiratory: Equal breath sounds bilaterally, no tachypnea; lungs clear to auscultation bilaterally, no wheezing ,rub or rales, or crackles. Chest wall is symmetric and without deformity. No signs of trauma. Chest wall is nontender. No signs of respiratory distress. Resonance is normal upon percussion bilaterally. Gastrointestinal: Abdomen symmetric, non-distended, soft, non-tender, normal bowel sounds x4 quadrant, normoactive, no hepatosplenomegaly , no masses , no bruit, no flank pain bilaterally. No voluntary guarding, rebound, or rigidity. No tenderness to percussion. No pulsatile masses. Equal femoral pulses. No Ingram's sign or McBurney point tenderness. Back; no CVA tenderness bilaterally, no deformities. Neck and back are without deformity as well. No tenderness noted on palpation of the spinous processes. Spinous processes are midline. Cervical, thoracic, and lumbar paraspinal muscles are not tender and are without spasm. Musculoskeletal: Extremities, normal range of motion, non-tender, muscle strength 5/5 x 4. Negative Homans signs bilaterally on lower extremity. Distal pulses full symmetrical, no clubbing, cyanosis , edema. Neurological: Speech is clear, alert, and oriented x 4. No motor or sensory deficit, deep tendon reflexes normal, cerebellar intact. Cranial nerves II-XII intact. Psych: Alert and or appropriate, normal affect. Vascular: Good distal pulses, which are equal x4; capillary refill less than 2 seconds. Lymphatic, no lymphadenopathy. Result Diagram: 05/20/25 0231 05/20/25 0231 Coagulation Studies Laboratory Tests Test 05/19/25 17:06 Prothrombin Time 12.9 SECONDS (9.0-12.0) H INR International Normalized Ratio 1.3 INR Activated Partial Thromboplast Time 28 SECONDS (22-32) Coagulation Comments Problem\Assessment\Plan Assessment Generalized weakness Diabetes mellitus type 2 uncontrolled Hypoglycemia Bacteremia Sepsis Hypovolemia UTI complicated Acute kidney injury secondary to vasomotor nephropathy Hypoalbuminemia Hypokalemia Malnutrition severe Chronic pain syndrome on home opioids Pancreatic cancer status post biliary stent placement Acute cholecystitis Acute cholangitis Anemia hemoglobin 9.6 Additional comorbidities, coronary artery disease, COPD, hypertension, CHF, chronic kidney disease 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, Plan IV antibiotics, fluids keep patient well hydrated euvolemic Correct electrolytes PT evaluation and treatment Nutrition consult Additional lab work pending General surgeon is on the case, recommended to transfer patient higher level of care Additional lab work pending I reconciled home medications DVT gastropathy prophylaxis addressed Sepsis Screening Reassessment Date: May 20, 2025 Date of Service: May 20, 2025 Billing Provider: NEO GALICIA MD Common Visit Codes: [id number] INP/OBS CARE(HIGH) NEO GALICIA MD May 20, 2025 16:00
[2025-05-20 18:00] VITALS: BP 138/46; PULSE 95; RESP 16; TEMP 97.6; O2SAT 95
[2025-05-20 22:00] VITALS: BP 151/58; PULSE 94; RESP 17; TEMP 98; O2SAT 98
[2025-05-21 06:00] VITALS: BP 123/49; PULSE 97; RESP 14; TEMP 97.3; O2SAT 96
[2025-05-21 06:07] LABS: MEAN PLATELET VOLUME 9.2 FL (7.4-10.4); RED CELL DISTRIBUTION WIDTH 15.2 % (11.5-14.5)
[2025-05-21] MEDS ORDERED: DEXTROSE 15 GM of carb/4 tabs (each vial/BOTTLE has 4 tablets) PO PRN ×2 (06:10)
[2025-05-21] MEDS ORDERED: dextrose 50%-water 50ml dispensing syringe IV PRN ×2 (06:10)
[2025-05-21] MEDS ORDERED: glucagon, human recombinant 1mg kit SUBCUT PRN (06:10)
[2025-05-21] MEDS: dextrose 50%-water 50ml dispensing syringe IV ONE (06:12)
[2025-05-21 06:25] LABS: CREATININE 0.74 MG/DL (0.40-0.90); TOTAL CARBON DIOXIDE 29.1 MMOL/L (24-32); eCRCL 47 ML/MIN; eGFR 74 ML/MIN
[2025-05-21 10:00] VITALS: BP 144/54; PULSE 81; RESP 13; TEMP 97.7; O2SAT 96
[2025-05-21] MEDS: potassium Cl 40MEQ/1/2NS 520ml 520 ML IV PRN (10:37)
--- NOTE | 2025-05-21 13:53 | PROGRESS NOTE ---
Daily Progress Note Providers to CC No new complaint today, had an episode of low blood sugar ~ Central Line/PICC still needed: No Joya-Non Protocol Joya Indications Met/Not Met: F/C Indications Not Met Antibiotic Timeout Antibiotic Ordered?: Yes MRSA Education MRSA Education Provided to pt: Yes Subjective As above Objective Vital Signs Date Time Temp Pulse Resp B/P (MAP) Pulse Ox O2 Delivery O2 Flow Rate FiO2 05/21/25 06:00 97.3 97 14 123/49 (73) 96 Room Air 05/20/25 08:50 0.0 Vital signs, stable ,afebrile. Pulse Oximetry reflects adequate oxygenation. General: well developed, well nourished. Awake , alert, and oriented x4, resting comfortably in the bed, in no acute distress . Skin: Warm, dry, no pallor, no rash or petechiae. HEENT: Atraumatic, normocephalic, EOMI, anicteric sclera B; pink conjunctiva; PERRLA, normal oropharynx, moist oral and nasal mucosa. Tympanic membrane , nose , throat clear. Neck: Trachea midline. Supple, full range of motion, no JVD, bruit , hepatojugular reflex , lymphadenopathy or masses, or other lesions Cardiac: Regular rhythm, regular rate no murmurs, rubs, or gallops. Normal S1 and S2, no S3 noticed. PMI is normal. Respiratory: Equal breath sounds bilaterally, no tachypnea; lungs clear to auscultation bilaterally, no wheezing ,rub or rales, or crackles. Chest wall is symmetric and without deformity. No signs of trauma. Chest wall is nontender. No signs of respiratory distress. Resonance is normal upon percussion bilaterally. Gastrointestinal: Abdomen symmetric, non-distended, soft, non-tender, normal bowel sounds x4 quadrant, normoactive, no hepatosplenomegaly , no masses , no bruit, no flank pain bilaterally. No voluntary guarding, rebound, or rigidity. No tenderness to percussion. No pulsatile masses. Equal femoral pulses. No Ingram's sign or McBurney point tenderness. Back; no CVA tenderness bilaterally, no deformities. Neck and back are without deformity as well. No tenderness noted on palpation of the spinous processes. Spinous processes are midline. Cervical, thoracic, and lumbar paraspinal muscles are not tender and are without spasm. Musculoskeletal: Extremities, normal range of motion, non-tender, muscle strength 5/5 x 4. Negative Homans signs bilaterally on lower extremity. Distal pulses full symmetrical, no clubbing, cyanosis , edema. Neurological: Speech is clear, alert, and oriented x 4. No motor or sensory deficit, deep tendon reflexes normal, cerebellar intact. Cranial nerves II-XII intact. Psych: Alert and or appropriate, normal affect. Vascular: Good distal pulses, which are equal x4; capillary refill less than 2 seconds. Lymphatic, no lymphadenopathy. Result Diagram: 05/21/25 [id number] Coagulation Studies Laboratory Tests Test 05/19/25 17:06 Prothrombin Time 12.9 SECONDS (9.0-12.0) H INR International Normalized Ratio 1.3 INR Activated Partial Thromboplast Time 28 SECONDS (22-32) Coagulation Comments Problem\Assessment\Plan Assessment Generalized weakness Diabetes mellitus type 2 uncontrolled Hypoglycemia Bacteremia Sepsis Hypovolemia UTI complicated Acute kidney injury secondary to vasomotor nephropathy Hypoalbuminemia Hypokalemia Malnutrition severe Chronic pain syndrome on home opioids Pancreatic cancer status post biliary stent placement Acute cholecystitis Acute cholangitis Anemia hemoglobin 9.6 Additional comorbidities, coronary artery disease, COPD, hypertension, CHF, chronic kidney disease 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, Plan IV antibiotics, fluids keep patient well hydrated euvolemic Correct electrolytes PT evaluation and treatment Nutrition consult Additional lab work pending General surgeon is on the case, recommended to transfer patient higher level of care Additional lab work pending I reconciled home medications DVT gastropathy prophylaxis addressed Date of Service: May 21, 2025 Billing Provider: NEO GALICIA MD Common Visit Codes: [id number] INP/OBS CARE(HIGH) NEO GALICIA MD May 21, 2025 13:53
[2025-05-21 18:00] VITALS: BP 162/58; PULSE 83; RESP 16; TEMP 97.8; O2SAT 99
[2025-05-21 22:24] VITALS: BP 154/70; PULSE 92; RESP 12; TEMP 97.7; O2SAT 97
[2025-05-22 06:00] VITALS: BP 156/69; PULSE 93; RESP 14; TEMP 97.7; O2SAT 97
[2025-05-22 06:25] LABS: MEAN PLATELET VOLUME 9.7 FL (7.4-10.4); RED CELL DISTRIBUTION WIDTH 14.9 % (11.5-14.5)
[2025-05-22 06:41] LABS: CREATININE 0.79 MG/DL (0.40-0.90); TOTAL CARBON DIOXIDE 28.6 MMOL/L (24-32); eCRCL 44 ML/MIN; eGFR 69 ML/MIN
[2025-05-22] MEDS: MULTIVIT-MIN/FERROUS GLUCONATE 9 MG/15 ML LIQUID PO SCH (07:09)
[2025-05-22 10:00] VITALS: BP 149/64; PULSE 86; RESP 14; TEMP 98.1; O2SAT 99
[2025-05-22] MEDS: CefTRIAXone 2gm/D5W 50ml BAG 50 ML IV SCH (14:19)
--- NOTE | 2025-05-22 15:13 | DISCHARGE SUMMARY ---
Discharge Summary Providers to No new complaint today resting comfortably in the bed tolerating medication fine ~ Discharge Summary Assessment Generalized weakness Diabetes mellitus type 2 uncontrolled Hypoglycemia Bacteremia Sepsis Hypovolemia UTI complicated Acute kidney injury secondary to vasomotor nephropathy Hypoalbuminemia Hypokalemia Malnutrition severe Chronic pain syndrome on home opioids Pancreatic cancer status post biliary stent placement Acute cholecystitis Acute cholangitis Anemia hemoglobin 9.6 Additional comorbidities, coronary artery disease, COPD, hypertension, CHF, chronic kidney disease 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, Admission Diagnosis: PANCREATITIS Admission Diagnosis Comment: Generalized weakness Diabetes mellitus type 2 uncontrolled Hypoglycemia Bacteremia Sepsis Hypovolemia UTI complicated Acute kidney injury secondary to vasomotor nephropathy Hypoalbuminemia Hypokalemia Malnutrition severe Chronic pain syndrome on home opioids Pancreatic cancer status post biliary stent placement Acute cholecystitis Acute cholangitis Anemia hemoglobin 9.6 Additional comorbidities, coronary artery disease, COPD, hypertension, CHF, chronic kidney disease 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, Hospital Course DATE OF ADMISSION: May 19, 2025 DATE OF DISCHARGE: May 22, 2025 Discharge Diagnosis\Comment: Generalized weakness Diabetes mellitus type 2 uncontrolled Hypoglycemia Bacteremia Sepsis Hypovolemia UTI complicated Acute kidney injury secondary to vasomotor nephropathy Hypoalbuminemia Hypokalemia Malnutrition severe Chronic pain syndrome on home opioids Pancreatic cancer status post biliary stent placement Acute cholecystitis Acute cholangitis Anemia hemoglobin 9.6 Additional comorbidities, coronary artery disease, COPD, hypertension, CHF, chronic kidney disease 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, Operations\Procedures: Non Consultants: General surgeon Complications: Non Condition on DC: Stable for transfer Discharge Summary: This is a 84 years old white female, with history of multiple medical problems including diabetes mellitus type 2 poor control, tachyarrhythmia on amiodarone, coronary artery disease nonobstructive, anemia hemoglobin 9.6, chronic kidney disease, CHF, hypertension, COPD, history of pancreatic cancer treated with biliary stent, hypoalbuminemia, malnutrition, BMI 20, chronic pain syndrome on home opioids, presented today to emergency department chief complaint generalized weakness associated with hypoglycemia; in addition Patient presents to the emergency room for evaluation of hypoglycemia. Patient does have pancreatic cancer with stent placement. Patient has not felt well the past day with decreased p.o. intake. She would not take her insulin today because when she checked her sugar it was not high enough to take her insulin. Daughter notes that earlier today patient was sitting by wood fire stove with the heat blanket on and shivering. Denies any dysuria or new abdominal pain. No cough cold congestion. In emergency department patient was extensively evaluated and treated including IV antibiotics, consulted by general surgeon, diagnosed with pancreatic cancer hypoglycemia, acute cholecystitis, UTI, bacteremia, and decision was made to admit patient for further evaluation and treatment, patient is going to be transferred to higher level of care per surgeon recommendation. Admission patient was extensively evaluated treated and per surgeon recommendation patient shall be transferred to higher level of care, today she is resting comfortably in the bed has no complaint ready to be transferred to higher level of care, in stable condition, medication reconciled, today on physical exam Vital signs, stable ,afebrile. Pulse Oximetry reflects adequate oxygenation. General: well developed, well nourished. Awake , alert, and oriented x4, resting comfortably in the bed, in no acute distress . Skin: Warm, dry, no pallor, no rash or petechiae. HEENT: Atraumatic, normocephalic, EOMI, anicteric sclera B; pink conjunctiva; PERRLA, normal oropharynx, moist oral and nasal mucosa. Tympanic membrane , nose , throat clear. Neck: Trachea midline. Supple, full range of motion, no JVD, bruit , hepatojugular reflex , lymphadenopathy or masses, or other lesions Cardiac: Regular rhythm, regular rate no murmurs, rubs, or gallops. Normal S1 and S2, no S3 noticed. PMI is normal. Respiratory: Equal breath sounds bilaterally, no tachypnea; lungs clear to auscultation bilaterally, no wheezing ,rub or rales, or crackles. Chest wall is symmetric and without deformity. No signs of trauma. Chest wall is nontender. No signs of respiratory distress. Resonance is normal upon percussion bilaterally. Gastrointestinal: Abdomen symmetric, non-distended, soft, non-tender, normal bowel sounds x4 quadrant, normoactive, no hepatosplenomegaly , no masses , no bruit, no flank pain bilaterally. No voluntary guarding, rebound, or rigidity. No tenderness to percussion. No pulsatile masses. Equal femoral pulses. No Ingram's sign or McBurney point tenderness. Back; no CVA tenderness bilaterally, no deformities. Neck and back are without deformity as well. No tenderness noted on palpation of the spinous processes. Spinous processes are midline. Cervical, thoracic, and lumbar paraspinal muscles are not tender and are without spasm. Musculoskeletal: Extremities, normal range of motion, non-tender, muscle strength 5/5 x 4. Negative Homans signs bilaterally on lower extremity. Distal pulses full symmetrical, no clubbing, cyanosis , edema. Neurological: Speech is clear, alert, and oriented x 4. No motor or sensory deficit, deep tendon reflexes normal, cerebellar intact. Cranial nerves II-XII intact. Psych: Alert and or appropriate, normal affect. Vascular: Good distal pulses, which are equal x4; capillary refill less than 2 seconds. Lymphatic, no lymphadenopathy. *Problems/Diagnosis: (1) Urinary tract infection Status: Acute (2) Hypoglycemia Status: Acute (3) Hypokalemia Status: Acute Total Time Spent on D/C: > 30 Minutes Date of Service: May 22, 2025 Billing Provider: NEO GALICIA MD Common Visit Codes: 46480-[id number] DISCH DAY >30min Problem Qualifiers (1) Urinary tract infection: Qualified Codes: N30.00 - Acute cystitis without hematuria NEO GALICIA MD May 22, 2025 15:13
[2025-05-22 18:00] VITALS: BP 141/87; PULSE 103; RESP 12; TEMP 98.7; O2SAT 97
--- NOTE | 2025-05-22 19:04 | PROGRESS NOTE ---
Daily Progress Note Providers to CC No new complaint, resting comfortably in the bed ~ Central Line/PICC still needed: No Joya-Non Protocol Joya Indications Met/Not Met: F/C Indications Not Met Antibiotic Timeout Antibiotic Ordered?: Yes MRSA Education MRSA Education Provided to pt: Yes Subjective As above Objective Vital Signs Date Time Temp Pulse Resp B/P (MAP) Pulse Ox O2 Delivery O2 Flow Rate FiO2 05/22/25 17:21 15 05/22/25 10:00 98.1 86 149/64 (92) 99 Room Air 05/20/25 08:50 0.0 Vital signs, stable ,afebrile. Pulse Oximetry reflects adequate oxygenation. General: well developed, well nourished. Awake , alert, and oriented x4, resting comfortably in the bed, in no acute distress . Skin: Warm, dry, no pallor, no rash or petechiae. HEENT: Atraumatic, normocephalic, EOMI, anicteric sclera B; pink conjunctiva; PERRLA, normal oropharynx, moist oral and nasal mucosa. Tympanic membrane , nose , throat clear. Neck: Trachea midline. Supple, full range of motion, no JVD, bruit , hepatojugular reflex , lymphadenopathy or masses, or other lesions Cardiac: Regular rhythm, regular rate no murmurs, rubs, or gallops. Normal S1 and S2, no S3 noticed. PMI is normal. Respiratory: Equal breath sounds bilaterally, no tachypnea; lungs clear to auscultation bilaterally, no wheezing ,rub or rales, or crackles. Chest wall is symmetric and without deformity. No signs of trauma. Chest wall is nontender. No signs of respiratory distress. Resonance is normal upon percussion bilaterally. Gastrointestinal: Abdomen symmetric, non-distended, soft, non-tender, normal bowel sounds x4 quadrant, normoactive, no hepatosplenomegaly , no masses , no bruit, no flank pain bilaterally. No voluntary guarding, rebound, or rigidity. No tenderness to percussion. No pulsatile masses. Equal femoral pulses. No Ingram's sign or McBurney point tenderness. Back; no CVA tenderness bilaterally, no deformities. Neck and back are without deformity as well. No tenderness noted on palpation of the spinous processes. Spinous processes are midline. Cervical, thoracic, and lumbar paraspinal muscles are not tender and are without spasm. Musculoskeletal: Extremities, normal range of motion, non-tender, muscle strength 5/5 x 4. Negative Homans signs bilaterally on lower extremity. Distal pulses full symmetrical, no clubbing, cyanosis , edema. Neurological: Speech is clear, alert, and oriented x 4. No motor or sensory deficit, deep tendon reflexes normal, cerebellar intact. Cranial nerves II-XII intact. Psych: Alert and or appropriate, normal affect. Vascular: Good distal pulses, which are equal x4; capillary refill less than 2 seconds. Lymphatic, no lymphadenopathy. Result Diagram: 05/22/2552405/[id number]/25524 Coagulation Studies Laboratory Tests Test 05/19/25 17:06 Prothrombin Time 12.9 SECONDS (9.0-12.0) H INR International Normalized Ratio 1.3 INR Activated Partial Thromboplast Time 28 SECONDS (22-32) Coagulation Comments Problem\Assessment\Plan Problems/Diagnosis: (1) Urinary tract infection (2) Hypoglycemia (3) Hypokalemia Assessment Generalized weakness Diabetes mellitus type 2 uncontrolled Hypoglycemia Bacteremia Sepsis Hypovolemia UTI complicated Acute kidney injury secondary to vasomotor nephropathy Hypoalbuminemia Hypokalemia Malnutrition severe Chronic pain syndrome on home opioids Pancreatic cancer status post biliary stent placement Acute cholecystitis Acute cholangitis Anemia hemoglobin 9.6 Additional comorbidities, coronary artery disease, COPD, hypertension, CHF, chronic kidney disease 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, Plan IV antibiotics, fluids keep patient well hydrated euvolemic Correct electrolytes PT evaluation and treatment Nutrition consult Additional lab work pending General surgeon is on the case, recommended to transfer patient higher level of care Additional lab work pending I reconciled home medications DVT gastropathy prophylaxis addressed Sepsis Screening Reassessment Date: May 22, 2025 Date of Service: May 22, 2025 Billing Provider: NEO GALICIA MD Common Visit Codes: 91127-[id number] INP/OBS CARE(HIGH) Problem Qualifiers (1) Urinary tract infection: Qualified Codes: N30.00 - Acute cystitis without hematuria NEO GALICIA MD May 22, 2025 19:04
[2025-05-22 20:00] VITALS: RESP 12; O2SAT 97
[2025-05-22 22:00] VITALS: BP 155/56; PULSE 98; RESP 13; TEMP 97.7; O2SAT 96
[2025-05-22 23:55] LABS: MEAN PLATELET VOLUME 9.1 FL (7.4-10.4); RED CELL DISTRIBUTION WIDTH 14.6 % (11.5-14.5)
[2025-05-23 00:12] LABS: INR 1.2 INR
[2025-05-23 00:19] LABS: CREATININE 0.96 MG/DL (0.40-0.90); TOTAL CARBON DIOXIDE 32.0 MMOL/L (24-32); eCRCL 36 ML/MIN; eGFR 55 ML/MIN
[2025-05-23 02:00] VITALS: BP 150/60; PULSE 86; RESP 12; TEMP 97.6; O2SAT 98
[2025-05-23 06:00] VITALS: BP 133/49; PULSE 82; RESP 11; TEMP 97.7; O2SAT 97
[2025-05-23 06:33] LABS: MEAN PLATELET VOLUME 9.1 FL (7.4-10.4); RED CELL DISTRIBUTION WIDTH 14.8 % (11.5-14.5)
[2025-05-23 06:40] LABS: INR 1.2 INR
[2025-05-23 10:00] VITALS: BP 158/69; PULSE 84; RESP 16; TEMP 97.6; O2SAT 99
[2025-05-23 12:27] VITALS: RESP 15
--- NOTE | 2025-05-23 19:13 | DISCHARGE SUMMARY ---
Discharge Summary Providers to Feels better today, ready to be transferred by daughter POV, to [facility] higher level of care ~ Discharge Summary Assessment Generalized weakness Diabetes mellitus type 2 uncontrolled Hypoglycemia Bacteremia Sepsis Hypovolemia UTI complicated Acute kidney injury secondary to vasomotor nephropathy Hypoalbuminemia Hypokalemia Malnutrition severe Chronic pain syndrome on home opioids Pancreatic cancer status post biliary stent placement Acute cholecystitis Acute cholangitis Anemia hemoglobin 9.6 Additional comorbidities, coronary artery disease, COPD, hypertension, CHF, chronic kidney disease 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, Admission Diagnosis: PANCREATITIS Admission Diagnosis Comment: Generalized weakness Diabetes mellitus type 2 uncontrolled Hypoglycemia Bacteremia Sepsis Hypovolemia UTI complicated Acute kidney injury secondary to vasomotor nephropathy Hypoalbuminemia Hypokalemia Malnutrition severe Chronic pain syndrome on home opioids Pancreatic cancer status post biliary stent placement Acute cholecystitis Acute cholangitis Anemia hemoglobin 9.6 Additional comorbidities, coronary artery disease, COPD, hypertension, CHF, chronic kidney disease 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, Hospital Course DATE OF ADMISSION: May 19, 2025 DATE OF DISCHARGE: May 23, 2025 Discharge Diagnosis\Comment: Generalized weakness Diabetes mellitus type 2 uncontrolled Hypoglycemia Bacteremia Sepsis Hypovolemia UTI complicated Acute kidney injury secondary to vasomotor nephropathy Hypoalbuminemia Hypokalemia Malnutrition severe Chronic pain syndrome on home opioids Pancreatic cancer status post biliary stent placement Acute cholecystitis Acute cholangitis Anemia hemoglobin 9.6 Additional comorbidities, coronary artery disease, COPD, hypertension, CHF, chronic kidney disease 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, Operations\Procedures: Non Consultants: Non Complications: Non Condition on DC: Stable for transfer Discharge Summary: This is a 84 years old white female, with history of multiple medical problems including diabetes mellitus type 2 poor control, tachyarrhythmia on amiodarone, coronary artery disease nonobstructive, anemia hemoglobin 9.6, chronic kidney disease, CHF, hypertension, COPD, history of pancreatic cancer treated with biliary stent, hypoalbuminemia, malnutrition, BMI 20, chronic pain syndrome on home opioids, presented today to emergency department chief complaint generalized weakness associated with hypoglycemia; in addition Patient presents to the emergency room for evaluation of hypoglycemia. Patient does have pancreatic cancer with stent placement. Patient has not felt well the past day with decreased p.o. intake. She would not take her insulin today because when she checked her sugar it was not high enough to take her insulin. Daughter notes that earlier today patient was sitting by [employer] stove with the heat blanket on and shivering. Denies any dysuria or new abdominal pain. No cough cold congestion. In emergency department patient was extensively evaluated and treated including IV antibiotics, consulted by general surgeon, diagnosed with pancreatic cancer hypoglycemia, acute cholecystitis, UTI, bacteremia, and decision was made to admit patient for further evaluation and treatment, patient is going to be transferred to higher level of care per surgeon recommendation. Admission patient was extensively evaluated treated today she is feeling better daughter elected to drive patient POV to higher level of care [facility], she will be discharged in stable condition medication reconciled, today on physical exam Vital signs, stable ,afebrile. Pulse Oximetry reflects adequate oxygenation. General: well developed, well nourished. Awake , alert, and oriented x4, resting comfortably in the bed, in no acute distress . Skin: Warm, dry, no pallor, no rash or petechiae. HEENT: Atraumatic, normocephalic, EOMI, anicteric sclera B; pink conjunctiva; PERRLA, normal oropharynx, moist oral and nasal mucosa. Tympanic membrane , nose , throat clear. Neck: Trachea midline. Supple, full range of motion, no JVD, bruit , hepatojugular reflex , lymphadenopathy or masses, or other lesions Cardiac: Regular rhythm, regular rate no murmurs, rubs, or gallops. Normal S1 and S2, no S3 noticed. PMI is normal. Respiratory: Equal breath sounds bilaterally, no tachypnea; lungs clear to auscultation bilaterally, no wheezing ,rub or rales, or crackles. Chest wall is symmetric and without deformity. No signs of trauma. Chest wall is nontender. No signs of respiratory distress. Resonance is normal upon percussion bilaterally. Gastrointestinal: Abdomen symmetric, non-distended, soft, non-tender, normal bowel sounds x4 quadrant, normoactive, no hepatosplenomegaly , no masses , no bruit, no flank pain bilaterally. No voluntary guarding, rebound, or rigidity. No tenderness to percussion. No pulsatile masses. Equal femoral pulses. No Ingram's sign or McBurney point tenderness. Back; no CVA tenderness bilaterally, no deformities. Neck and back are without deformity as well. No tenderness noted on palpation of the spinous processes. Spinous processes are midline. Cervical, thoracic, and lumbar paraspinal muscles are not tender and are without spasm. Musculoskeletal: Extremities, normal range of motion, non-tender, muscle strength 5/5 x 4. Negative Homans signs bilaterally on lower extremity. Distal pulses full symmetrical, no clubbing, cyanosis , edema. Neurological: Speech is clear, alert, and oriented x 4. No motor or sensory deficit, deep tendon reflexes normal, cerebellar intact. Cranial nerves II-XII intact. Psych: Alert and or appropriate, normal affect. Vascular: Good distal pulses, which are equal x4; capillary refill less than 2 seconds. Lymphatic, no lymphadenopathy. *Problems/Diagnosis: (1) Urinary tract infection Status: Acute (2) Hypoglycemia Status: Acute (3) Hypokalemia Status: Acute Total Time Spent on D/C: > 30 Minutes Date of Service: May 23, 2025 Billing Provider: NEO GALICIA MD Common Visit Codes: 06656-WJZ/[id number] DISCH DAY >30min Problem Qualifiers (1) Urinary tract infection: Qualified Codes: N30.00 - Acute cystitis without hematuria NEO GALICIA MD May 23, 2025 19:13
== END 2025-05-23 15:15 | disposition home or self-care (01) | DRG 871 ==
LOC: ER 01:58 → ED HOLD 05-19 16:50 → EDBEDREQ 05-20 03:25 → ORTHO 4S 05-20 07:05
PROVIDERS: ADMIT Family Medicine; ATTEND Family Medicine
DX: A41.9 Sepsis, unspecified organism (principal); E43 Unspecified severe protein-calorie malnutrition; N17.0 Acute kidney failure with tubular necrosis; C25.9 Malignant neoplasm of pancreas, unspecified; K81.0 Acute cholecystitis; K83.09 Other cholangitis; E88.09 Other disorders of plasma-protein metabolism, not elsewhere classified; I50.9 Heart failure, unspecified; D64.9 Anemia, unspecified; E11.22 Type 2 diabetes mellitus with diabetic chronic kidney disease; E86.1 Hypovolemia; N30.00 Acute cystitis without hematuria; I13.0 Hypertensive heart and chronic kidney disease with heart failure and stage 1 through stage 4 chronic kidney disease, or unspecified chronic kidney disease; J44.9 Chronic obstructive pulmonary disease, unspecified; N18.9 Chronic kidney disease, unspecified; E11.649 Type 2 diabetes mellitus with hypoglycemia without coma; I25.10 Atherosclerotic heart disease of native coronary artery without angina pectoris; E87.6 Hypokalemia; G89.4 Chronic pain syndrome; Z79.82 Long term (current) use of aspirin; Z79.899 Other long term (current) drug therapy; Z68.20 Body mass index [BMI] 20.0-20.9, adult
CPT/HCPCS: 36415; 71045; 74176; 74181; 76700; 80053; 81001; 82948; 83036; 83605; 83690; 83735; 83880; 84100; 84132; 84145; 84443; 84484; 85025; 85610; 85730; 87040; 87077; 87081; 87088; 87186; 87804; 93005; 96365; 97116; 97161; 99285; A6258; A6446; G0378; J0696; J1815; J2543; J3480; J3490; J7030; J7040; J7042; J7070